=== PATIENT | female | born 1945 | race African-American/Black ===

== ENCOUNTER 2017-05-20 12:50 | Inpatient (IN) | payer MEDICARE, OTHER ==
[~2017-05-20] VITALS: Ht 170.2 cm; Wt 54.4 kg
[~2017-05-20 12:50] MED LIST: ATOR40TA70 PO; CARV12.545 PO; FURO20TA4 PO; LOSA25TA12 PO; POTA20TA82 PO; WARF-53 PO; WARF2.5T47 PO; WARFARIN
[2017-05-20] MEDS ORDERED: NITROGLYCERIN OINT 1GM/INCH UDPKT TD STA (13:54)
[2017-05-20] MEDS ORDERED: FUROSEMIDE 40MG/4ML VIAL IV STA (13:54)
[2017-05-20 14:50] LABS: BASOPHILS % 0.3 % (0.0-2.0); HEMATOCRIT. 38.2 % (36.0-48.0); HEMOGLOBIN. 12.8 g/dL (12.0-16.0); LYMPHOCYTES % 13.1 % (20.0-50.0); MEAN CORPUSCULAR HEMOGLOBIN 28.9 pg (28.0-32.0); MEAN CORPUSCULAR VOLUME 86.4 fL (81.0-99.0); MEAN PLATELET VOLUME 9.4 fl (7.4-10.4); MONOCYTES % 6.6 % (2.0-8.0); PLATELET 161 x1000/uL (130-400); RED BLOOD CELL COUNT 4.43 mill/uL (4.2-5.4); RED CELL DISTRIBUTION WIDTH 17.9 % (11.6-14.6)
[2017-05-20 14:58] LABS: INR 2.2; PROTHROMBIN TIME 22.8 sec (9.4-11.6)
[2017-05-20 14:59] LABS: CHLORIDE 100 mEq/L (98-107)
[2017-05-20] MEDS ORDERED: GUAIFENESIN 200MG/10ML SUGAR FREE UDC PO PRN (16:00)
[2017-05-20] MEDS ORDERED: DIPHENHYDRAMINE 50MG/ML VIAL IV PRN (16:00)
[2017-05-20] MEDS ORDERED: MAGNESIUM/ALUMINUM HYDROXIDE/SIMETHICONE 30ML UDC PO PRN (16:00)
[2017-05-20] MEDS ORDERED: TRAMADOL 50MG TABLET PO PRN (16:00)
[2017-05-20] MEDS ORDERED: LORAZEPAM 0.5MG TABLET PO PRN (16:00)
[2017-05-20] MEDS ORDERED: ONDANSETRON HCL 4MG/2ML VIAL IV PRN (16:00)
[2017-05-20] MEDS ORDERED: CLONIDINE 0.1MG TABLET PO PRN (16:00)
[2017-05-20] MEDS ORDERED: IPRATROPIUM/ALBUTEROL 0.5-3(2.5)MG/3ML NEB INH PRN (16:00)
[2017-05-20] MEDS ORDERED: DOCUSATE SODIUM 100MG CAPSULE PO PRN (16:00)
[2017-05-20] MEDS ORDERED: ZOLPIDEM TARTRATE 5MG TABLET PO PRN (16:00)
[2017-05-20] MEDS ORDERED: ACETAMINOPHEN 325MG TABLET PO PRN (16:00)
[2017-05-20] MEDS ORDERED: NA PHOS,M-B/NA PHOS,DI-BA ENEMA 118ML PR PRN (16:00)
[2017-05-20 16:45] VITALS: BP 124/90
[2017-05-20] MEDS: CARVEDILOL 3.125 MG TABLET PO SCH (18:00)
[2017-05-20 19:34] VITALS: BP 106/64
[2017-05-20] MEDS ORDERED: AZITHROMYCIN 500 MG in DEXT 5% WATER 250 ML IV SCH (20:00)
[2017-05-20] MEDS: FAMOTIDINE 20MG TABLET PO SCH (21:27)
[2017-05-20] MEDS: FUROSEMIDE 40MG/4ML VIAL IVP SCH (21:27)
[2017-05-20] MEDS: SPIRONOLACTONE 25MG TABLET PO SCH (21:27)
[2017-05-20] MEDS ORDERED: DEXTROSE 50% WATER 50ML SYRINGE IV PRN (22:00)
[2017-05-20 22:39] VITALS: BP 106/64
[2017-05-20 23:23] LABS: CREATINE KINASE MB FRACTION 1.9 ng/mL (0.5-3.6)
[2017-05-21] VITALS: BP 102/55
[2017-05-21 01:57] LABS: CLARITY URINE CLEAR (CLEAR); COLOR URINE YELLOW (YELLOW); KETONES URINE NEGATIVE (NEGATIVE); LEUKOCYTE ESTERASE URINE NEGATIVE (NEGATIVE); NITRITE URINE NEGATIVE (NEGATIVE); OCCULT BLOOD URINE NEGATIVE (NEGATIVE); PROTEIN URINE NEGATIVE (NEGATIVE); SPECIFIC GRAVITY URINE 1.013 (1.005-1.030); UROBILINOGEN URINE 0.2 E.U./dL (0.2-1.0)
[2017-05-21 02:20] LABS: *AMPHETAMINES SCREEN URINE NEGATIVE (NEGATIVE); *BARBITURATES SCREEN URINE NEGATIVE (NEGATIVE); CANNABINOID URINE SCREEN NEGATIVE (NEGATIVE); PHENCYCLIDINE URINE SCREEN NEGATIVE (NEGATIVE)
[2017-05-21 02:21] LABS: *BENZODIAZEPINES SCREEN URINE NEGATIVE (NEGATIVE); *COCAINE SCREEN URINE NEGATIVE (NEGATIVE); METHADONE URINE SCREEN NEGATIVE (NEGATIVE); OPIATES URINE SCREEN NEGATIVE (NEGATIVE)
[2017-05-21] MEDS: AZITHROMYCIN 500 MG in DEXT 5% WATER 250 ML IV SCH (02:44)
[2017-05-21 03:15] VITALS: BP 99/71
[2017-05-21] MEDS: CARVEDILOL 3.125 MG TABLET PO SCH ×3 (05:11→17:57)
[2017-05-21] MEDS: BLOOD SUGAR DIAGNOSTIC STRIP TEST SCH ×4 (06:20→21:00)
[2017-05-21 07:38] LABS: INR 2.9; PROTHROMBIN TIME 30.8 sec (9.4-11.6)
[2017-05-21] MEDS: INSULIN LISPRO 100 UNITS/ML SUBCUT SCH ×4 (07:50→21:00)
[2017-05-21 08:00] VITALS: BP 112/67
[2017-05-21] MEDS: ASPIRIN 325MG EC TABLET PO SCH (09:00)
[2017-05-21 09:06] LABS: CREATINE KINASE MB FRACTION 1.6 ng/mL (0.5-3.6)
[2017-05-21] MEDS: SPIRONOLACTONE 25MG TABLET PO SCH ×2 (09:36→21:20)
[2017-05-21] MEDS: FUROSEMIDE 40MG/4ML VIAL IVP SCH ×2 (09:40→21:00)
[2017-05-21 12:00] VITALS: BP 92/54
[2017-05-21 16:00] VITALS: BP 112/73
[2017-05-21 20:00] VITALS: BP 84/56
[2017-05-21] MEDS: FAMOTIDINE 20MG TABLET PO SCH (21:20)
[2017-05-21] MEDS: ATORVASTATIN CALCIUM 40MG TABLET PO SCH (21:20)
[2017-05-22] VITALS: BP 95/59
[2017-05-22] MEDS: AZITHROMYCIN 500 MG in DEXT 5% WATER 250 ML IV SCH (01:34)
[2017-05-22 04:17] VITALS: BP 103/63
[2017-05-22] MEDS: CARVEDILOL 3.125 MG TABLET PO SCH ×2 (06:00→17:47)
[2017-05-22] MEDS: BLOOD SUGAR DIAGNOSTIC STRIP TEST SCH ×4 (06:53→21:00)
[2017-05-22] MEDS: INSULIN LISPRO 100 UNITS/ML SUBCUT SCH ×4 (07:50→21:00)
[2017-05-22 08:12] LABS: INR 2.5
[2017-05-22 08:34] VITALS: BP 135/102
[2017-05-22 08:40] VITALS: BP 116/66
[2017-05-22] MEDS: FUROSEMIDE 40MG/4ML VIAL IVP SCH ×2 (08:47→21:00)
[2017-05-22] MEDS: ASPIRIN 325MG EC TABLET PO SCH (09:00)
[2017-05-22] MEDS: SPIRONOLACTONE 25MG TABLET PO SCH ×2 (09:25→21:29)
[2017-05-22 17:30] VITALS: BP 111/72
[2017-05-22] MEDS ORDERED: WARFARIN SODIUM 2MG TABLET PO NR (18:00)
[2017-05-22 20:34] VITALS: BP 109/65
[2017-05-22] MEDS: FAMOTIDINE 20MG TABLET PO SCH (21:29)
[2017-05-22] MEDS: ATORVASTATIN CALCIUM 40MG TABLET PO SCH (21:29)
[2017-05-23] VITALS: BP 111/68
[2017-05-23] MEDS: AZITHROMYCIN 500 MG in DEXT 5% WATER 250 ML IV SCH (01:26)
[2017-05-23 04:00] VITALS: BP 101/65
[2017-05-23] MEDS: CARVEDILOL 3.125 MG TABLET PO SCH (06:00)
[2017-05-23 06:54] LABS: INR 1.9; PROTHROMBIN TIME 20.4 sec (9.4-11.6)
[2017-05-23] MEDS: BLOOD SUGAR DIAGNOSTIC STRIP TEST SCH (06:57)
[2017-05-23] MEDS: INSULIN LISPRO 100 UNITS/ML SUBCUT SCH (07:50)
[2017-05-23 08:00] VITALS: BP 95/66
[2017-05-23] MEDS: ASPIRIN 325MG EC TABLET PO SCH (09:00)
[2017-05-23] MEDS: FUROSEMIDE 40MG/4ML VIAL IVP SCH (09:27)
[2017-05-23] MEDS: SPIRONOLACTONE 25MG TABLET PO SCH (09:27)
[2017-05-23 12:00] VITALS: BP 118/76
[2017-05-23] MEDS ORDERED: WARFARIN SODIUM 2.5MG TABLET PO NR (18:00)
== END 2017-05-23 13:30 | disposition left against medical advice (07) | DRG 871 ==
LOC: ER 13:00 → 6WST 15:42 → EDBEDREQ 15:43 → SUPCPDRO 15:53 → ENRESERV 15:55
PROVIDERS: ADMIT Internal Medicine; ATTEND Internal Medicine
DX: A41.9 Sepsis, unspecified organism (principal); I50.41 Acute combined systolic (congestive) and diastolic (congestive) heart failure; I42.9 Cardiomyopathy, unspecified; I48.91 Unspecified atrial fibrillation; E11.9 Type 2 diabetes mellitus without complications; I11.0 Hypertensive heart disease with heart failure; Z53.21 Procedure and treatment not carried out due to patient leaving prior to being seen by health care provider; E78.00 Pure hypercholesterolemia, unspecified; I25.10 Atherosclerotic heart disease of native coronary artery without angina pectoris; Z79.4 Long term (current) use of insulin; Z79.899 Other long term (current) drug therapy; Z86.73 Personal history of transient ischemic attack (TIA), and cerebral infarction without residual deficits; Z87.891 Personal history of nicotine dependence; Z95.0 Presence of cardiac pacemaker; Z88.0 Allergy status to penicillin; Z79.01 Long term (current) use of anticoagulants
CPT/HCPCS: 36415; 70450; 71045; 80053; 80061; 80305; 81003; 82550; 82553; 82962; 83036; 83605; 83690; 83880; 84145; 84484; 85025; 85610; 87040; 87086; 93005; 96374; 99285; C1893; J0456; J1815; J1940; J7050; J7060